=== PATIENT | male | born 1960 | race Caucasian/White ===

== ENCOUNTER 2018-10-13 09:27 | Emergency (ER) | payer OTHER ==
[2018-10-13] MEDS: SOD CHLORIDE 0.9% 1,000 ML IV (10:20)
[2018-10-13] MEDS: LEVETIRACETAM 1000 MG (PMX) 100 ML IVPB (10:38)
[2018-10-13 10:43] LABS: ADD MAN DIFF? NO
[2018-10-13 10:45] LABS: BASOPHIL # 0.1 10^3/ul (0.0-0.1); BASOPHILS % 0.9 % (0.0-2.0); EOSINOPHILS # 0.4 10^3/ul (0.0-0.5); EOSINOPHILS % 5.3 % (0.0-7.0); HEMATOCRIT 42.6 % (42.0-52.0); HEMOGLOBIN 13.9 g/dl (14.0-18.0); LYMPHOCYTES # 1.6 10^3/ul (0.8-2.9); MEAN CORPUSCULAR HEMOGLOBIN 31.6 pg (29.0-33.0); MEAN CORPUSCULAR HGB CONC 32.6 g/dl (32.0-37.0); MEAN CORPUSCULAR VOLUME 96.8 fl (82.0-101.0); MEAN PLATELET VOLUME 11.9 fl (7.4-10.4); MONOCYTE # 0.6 10^3/ul (0.3-0.9); MONOCYTES % 7.8 % (0.0-11.0); NEUTROPHIL # 5.2 10^3/ul (1.6-7.5); NEUTROPHILS % 65.6 % (39.0-77.0); PLATELET COUNT 241 10^3/UL (140-415); RED CELL DISTRIBUTION WIDTH 13.7 % (11.5-14.5)
[2018-10-13 10:45] LABS: WHITE BLOOD COUNT 7.9 10^3/ul (4.8-10.8)
[2018-10-13] MEDS: ONDANSETRON 4 MG INJ IV (10:49)
[2018-10-13 11:04] LABS: ALANINE AMINOTRANSFERASE 16 IU/L (13-69); ALBUMIN 3.7 g/dl (3.3-4.9); ALBUMIN/GLOBULIN RATIO 1.08; ALKALINE PHOSPHATASE 63 IU/L (42-121); ANION GAP 5 (5-13); ASPARTATE AMINO TRANSFERASE 22 IU/L (15-46); BILIRUBIN,INDIRECT 0.2 mg/dl (0-1.1); BILIRUBIN,TOTAL 0.2 mg/dl (0.2-1.3); BLOOD UREA NITROGEN 6 mg/dl (7-20); CARBON DIOXIDE 33 mmol/L (21-31); CHLORIDE 102 mmol/L (97-110); CREATININE 0.84 mg/dl (0.61-1.24); Estimated GFR > 60 mL/min (>60); GLUCOSE 86 mg/dl (70-220); LIPASE 91 U/L (23-300); POTASSIUM 4.5 mmol/L (3.5-5.1); SODIUM 140 mmol/L (135-144); TOTAL PROTEIN 7.1 g/dl (6.1-8.1)
[2018-10-13 11:10] LABS: VALPROATE 38 ug/ml (50-100)
[2018-10-13] MEDS ORDERED: VALPROIC ACID 250 MG CAP PO (11:30)
== END 2018-10-13 12:15 | disposition home or self-care (01) ==
LOC: E/R 09:27
DX: R56.9 Unspecified convulsions (principal); R40.2142 Coma scale, eyes open, spontaneous, at arrival to emergency department; R40.2362 Coma scale, best motor response, obeys commands, at arrival to emergency department; R40.2252 Coma scale, best verbal response, oriented, at arrival to emergency department; F17.210 Nicotine dependence, cigarettes, uncomplicated
CPT/HCPCS: 36415; 80053; 80164; 83690; 85025; 96374; 96375; 99284-25